=== PATIENT | male | born 1955 | race Caucasian/White ===

== ENCOUNTER → 2016-08-27 | Day surgery (SDC) | payer BC ==
[~2016-08-27] MED LIST: ACETAMINOPHEN PO; ALLOPURINOL300 MG PO; FLOMAX0.4 M1 PO; IBUPROFEN600 MG PO; LIPITOR20 MG PO; LORTAB 10-5001 EACH PO; PHENERGAN25 M1 PO; ZESTORETIC 10-1 EAC1; ZYRTEC10 M2 PO; [UNRECOGNIZED DRUG - OTHER]
--- NOTE | ~2016-08-27 | OR ---
Unit #: [id number] #: [id number] Patient: TOÑO TANG [id number] [address] [address] [id number] O MR#: [id number] NAME: TOÑO TANG ROOM: Date of Procedure: 08/27/2016 Admission Date: 08/27/2016 Surgeon: Mohan Richardson M.D. : 1955 Attending Physician: Mohan Richardson M.D. Referring Physician: Mohan Richardson M.D. Primary Care Physician: Kirk Hastings Jr., M.D. OPERATIVE REPORT PROCEDURE PERFORMED Colonoscopy with snare polypectomy. INDICATIONS Average risk for colorectal cancer. MEDICATIONS Monitored anesthesia. POSTOPERATIVE FINDINGS 1. Three cecal polyps, 3 to 5 mm, snared and sent for histopathology. 2. Descending colon, 3 to 5 mm polyp, snared and sent for histopathology. 3. Sigmoid colon, 1 polyp, small, snared and sent for histopathology. 4. Preop was good. 5. Rest of the exam was normal. PLAN Given the multiple history of polyps years. DESCRIPTION OF PROCEDURE The patient was explained of the procedure, risks, and benefits along with risks and benefits of anesthesia. She was brought to the endoscopy room. Propofol anesthesia was given. Rectal exam was done, which was normal. Colonoscope was lubricated, passed up the rectum, advanced under direct vision all the way to the cecum. Cecum was identified by ileocecal valve and appendiceal orifice. I then started to pull the scope out carefully looking. Several polyps were seen as described. They were all snared and sent for histopathology. I retroflexed in the rectum, small hemorrhoids seen. The scope was gently pulled out. She tolerated it well. Dictated by... Toño Brewster/darío TD: 08/28/2016 03:33 JOB #: [id number] CC: Kirk Hastings Jr, M.D. Unit #: [id number] #: [id number] Patient: TOÑO TANG OPERATIVE REPORT Page 1 of 1 X Mohan Richardson MD PROCEDURE OPERATIVE NOTE
== END | disposition home or self-care (01) ==
LOC: COPS 08:35
DX: Z12.11 Encounter for screening for malignant neoplasm of colon (principal); D12.0 Benign neoplasm of cecum; D12.4 Benign neoplasm of descending colon; D12.5 Benign neoplasm of sigmoid colon
CPT/HCPCS: 88305; J2250